=== PATIENT | female | born 1985 | race Caucasian/White ===

== ENCOUNTER 2017-05-24 11:29 | Inpatient (IN) | payer OTHER ==
[~2017-05-24] VITALS: Ht 157.5 cm; Wt 100.3 kg
--- NOTE | 2017-05-24 14:28 | RADRPT ---
PROCEDURE: OB ultrasound for biophysical profile CLINICAL INDICATION: Post dates. TECHNIQUE: Multiple sonographic images of the pelvis were obtained. Transabdominal view of the gr avid uterus are available for review. The images were reviewed on a PACS workstation. COMPARISON: None FINDINGS: breathing movement = 2/2 tone = 2/2 motion = 2/2 Quantitative amniotic fluid volume = 2/2 ELAINE = 11.4 cm Single live intrauterine with cardiac activity at 137 beats per minute. There is a posterior placenta without previa or abruption. IMPRESSION: 1. Single living intrauterine gestation in cephalic position. 2. Biophysical profile = 8. 3. ELAINE = 11.4 cm. RPTAT: [facility] Physician Leandro Date Time Electronically viewed and signed by Physician Leandro on 05/24/2017 14:27 /
[2017-05-24] MEDS ORDERED: MISOPROSTOL 200 MCG TAB PR PRN (15:00)
[2017-05-24] MEDS ORDERED: IBUPROFEN 600 MG TAB PO PRN (15:00)
[2017-05-24] MEDS ORDERED: METHYLERGONOVINE 0.2 MG INJ IM PRN (15:00)
[2017-05-24] MEDS ORDERED: OXYTOCIN 30 UNITS/LR 500 ML IV SCH ×3 (15:00)
[2017-05-24] MEDS ORDERED: LIDOCAINE 1% (MPF) 30 ML INJ INJ PRN (15:00)
[2017-05-24] MEDS ORDERED: OXYTOCIN 30 UNITS/LR 500 ML IV PRN (15:00)
[2017-05-24] MEDS ORDERED: AMPICILLIN 2 GM/NS (PMX) 100 ML IV ONE (15:00)
[2017-05-24] MEDS ORDERED: CARBOPROST 250 MCG INJ IM PRN (15:00)
[2017-05-24] MEDS ORDERED: BUTORPHANOL 2 MG INJ IV PRN (15:00)
[2017-05-24] MEDS: LACTATED RINGER'S 1,000 ML IV SCH (16:00)
[2017-05-24 16:22] LABS: BASOPHILS % 0.2 % (0.0-2.0); EOSINOPHILS % 0.3 % (0.0-7.0); HEMATOCRIT 33.7 % (37.0-47.0); HEMOGLOBIN 11.6 g/dl (12.0-16.0); LYMPHOCYTES # 2.4 10^3/ul (0.8-2.9); LYMPHOCYTES % 18.9 % (15.0-51.0); MEAN CORPUSCULAR HEMOGLOBIN 30.4 pg (29.0-33.0); MEAN CORPUSCULAR HGB CONC 34.4 g/dl (32.0-37.0); MEAN CORPUSCULAR VOLUME 88.2 fl (82.0-101.0); MEAN PLATELET VOLUME 10.1 fl (7.4-10.4); MONOCYTE # 0.6 10^3/ul (0.3-0.9); MONOCYTES % 4.9 % (0.0-11.0); NEUTROPHIL # 9.6 10^3/ul (1.6-7.5); NEUTROPHILS % 75.4 % (39.0-77.0); PLATELET COUNT 252 10^3/UL (140-415); RED BLOOD COUNT 3.82 10^6/ul (4.20-5.40); RED CELL DISTRIBUTION WIDTH 13.8 % (11.5-14.5); WHITE BLOOD COUNT 12.8 10^3/ul (4.8-10.8)
[2017-05-24 16:41] LABS: INR 0.93; PROTIME 12.6 Sec (11.9-14.9)
[2017-05-24 16:42] LABS: PARTIAL THROMBOPLASTIN TIME 27.4 Sec (25.0-35.0)
[2017-05-24 17:26] VITALS: Ht 157.5 cm; Wt 100.3 kg
[2017-05-24 17:27] VITALS: BP 115/67; PULSE 94; RESP 18
[2017-05-24] MEDS: CLINDAMYCIN 900 MG/D5W (PMX) 50 ML IVPB SCH ×2 (17:37→22:35)
[2017-05-24] MEDS ORDERED: PREN-93 PO (18:51)
[2017-05-24] MEDS ORDERED: ACYC400T2 PO (18:52)
[2017-05-24] MEDS ORDERED: FER325 PO (18:52)
[2017-05-24] MEDS ORDERED: AMPICILLIN 1 GM/NS (PMX) 50 ML IV SCH (19:00)
--- NOTE | 2017-05-24 19:37 | TRIAGE ---
OB Triage Datetime Report Generated by CPN: 05/24/2017 19:37 Datetime: 05/24/2017 18:58 Assessment Type: Ongoing Assessment Maternal Assessment Level of Consciousness: Fully Conscious DTR's/Clonus: DTRs 2+; No Clonus Headache: Denies Blurred Vision: No Respiratory Effort: Unlabored; Regular Rhythm; Equal Expansion Breath Sounds, Left: Clear and Equal Breath Sounds, Right: Clear and Equal Nausea/Vomiting: Denies RUQ Epigastric Pain: Denies Lower Extremities Edema: Bilateral Lower Extremities Degree: 1+ Upper Extremities Edema: None Degree: None Facial Edema: None Fall Risk Assessment History of Falling: (0) No Secondary Diagnosis: (0) No Ambulatory Aid: (0) Bedrest/Nurse Assist IV Therapy: (20) Yes Gait: (0) Normal/Bedrest/Immobile Mental Status: (0) Oriented to Own Ability Fall Score: 20 Fall Risk Score Definition: No Risk: No action required Datetime: 05/24/2017 18:55 Stage of : Labor Temperature Route: Oral Labor Evaluation Frequency: 4-6 Monitor Mode: External Duration (sec)2399: 30-60 Quality: Mild Pattern: Normal: <= 5 Contractions in 10 Minutes Resting Tone [place]: Relaxed Heart Rate FHR Baseline Rate: 140 Monitor Mode: External US Variability: Moderate 6-25 bpm Accelerations: 15X15 Decelerations: None Pain Assessment Pain Scale: 2 Pain Presence: Intermittent Pain Type: Cramping; Pressure Pain Location: Abdomen Pain Goal: 3 Pain Relief Measures: Comfort Measures Datetime: 05/24/2017 18:26 Stage of : Labor Labor Evaluation Frequency: 4-6 Monitor Mode: External Duration (sec)2399: 30-60 Quality: Mild Pattern: Normal: <= 5 Contractions in 10 Minutes Resting Tone [place]: Relaxed Heart Rate FHR Baseline Rate: 140 Monitor Mode: External US Variability: Moderate 6-25 bpm Accelerations: 15X15 Decelerations: None Pain Assessment Pain Scale: 2 Pain Presence: Intermittent Pain Type: Cramping; Pressure Pain Location: Abdomen Pain Goal: 3 Pain Relief Measures: Comfort Measures Vaginal Exam Membrane Status: Ruptured Membranes Ruptured Date/Time: 05/24/2017 09:00 Membranes Rupture Method: Spontaneous Datetime: 05/24/2017 17:55 Assessment Type: Admission Assessment Vaginal Bleeding: None Maternal Assessment Level of Consciousness: Fully Conscious DTR's/Clonus: DTRs 2+; No Clonus Headache: Denies Blurred Vision: No Respiratory Effort: Unlabored; Regular Rhythm; Equal Expansion Breath Sounds, Left: Clear and Equal Breath Sounds, Right: Clear and Equal Nausea/Vomiting: Denies RUQ Epigastric Pain: Denies Lower Extremities Edema: None Degree: None Upper Extremities Edema: None Degree: None Facial Edema: None Fall Risk Assessment History of Falling: (0) No Secondary Diagnosis: (0) No Ambulatory Aid: (0) Bedrest/Nurse Assist Gait: (0) Normal/Bedrest/Immobile Mental Status: (0) Oriented to Own Ability Labor Evaluation Frequency: 2-6 Monitor Mode: External Duration (sec)2399: 30-60 Quality: Mild Pattern: Normal: <= 5 Contractions in 10 Minutes Resting Tone [place]: Relaxed Heart Rate FHR Baseline Rate: 135 Monitor Mode: External US Variability: Moderate 6-25 bpm Accelerations: 15X15 Decelerations: None Pain Assessment Pain Scale: 2 Pain Presence: Intermittent Pain Type: Cramping; Pressure Pain Location: Abdomen Pain Goal: 3 Vaginal Exam Membrane Status: Bulging Membranes Ruptured Date/Time: 05/24/2017 09:00 Membranes Rupture Method: Spontaneous Amniotic Fluid Color: Clear Amniotic Fluid Amount: Small Amniotic Fluid Odor: None ROM Test Kit: Positive Datetime: 05/24/2017 17:00 Stage of : Labor Maternal Assessment Level of Consciousness: Fully Conscious Temperature Route: Oral Labor Evaluation Frequency: 3-5 Monitor Mode: External Duration (sec)2399: 30-60 Quality: Mild Pattern: Normal: <= 5 Contractions in 10 Minutes Resting Tone [place]: Relaxed Heart Rate FHR Baseline Rate: 135 Monitor Mode: External US Variability: Moderate 6-25 bpm Accelerations: 15X15 Decelerations: None Category: Category I Pain Assessment Pain Scale: 2 Pain Presence: Intermittent Pain Type: Cramping; Pressure Pain Location: Abdomen Pain Goal: 3 Pain Relief Measures: Comfort Measures Vaginal Exam Membrane Status: Ruptured (Annotations: ROM + POSITIVE IN TRIAGE) Membranes Ruptured Date/Time: 05/24/2017 09:00 Membranes Rupture Method: Spontaneous Amniotic Fluid Color: Clear Amniotic Fluid Amount: Small Amniotic Fluid Odor: None Vaginal Bleeding: None Datetime: 05/24/2017 12:00 Time of Arrival: 05/24/2017 11:19 EGA: 40.1 Arrived By: Ambulatory Arrived From: Home Chief Complaint: r/o srom small amt amn fluid about a tablespoon Movement: Present Contractions: Irregular Rupture of Membranes: Unsure Vaginal Bleeding: Normal Show Vaginal Discharge: Present Recent Sexual Intercouse: Yes Abdominal Trauma: Not Applicable Patient Complaints: Other Time Provider Notified: 05/24/2017 13:30 Provider Notified: Jin Initial Plan: EFM MONITOR UC'S AMNIOTIC FLUID NO LEAKAGE X 2 HRS
--- NOTE | 2017-05-24 19:44 | TRIAGE ---
OB Triage Datetime Report Generated by CPN: 05/24/2017 19:43 Datetime: 05/24/2017 19:28 Stage of : Labor Level of Consciousness: Fully Conscious DTR's/Clonus: DTRs 2+ Headache: Denies Blurred Vision: No Nausea/Vomiting: Denies RUQ Epigastric Pain: Denies Facial Edema: None Frequency: 3-4 Monitor Mode: External Duration (sec)2399: 40-60 Quality: Mild Pattern: Normal: <= 5 Contractions in 10 Minutes [address]ing Tone [place]: Relaxed FHR Baseline Rate: 135 Monitor Mode: External US FHR Baseline Changes: No Baseline Change Variability: Moderate 6-25 bpm Accelerations: 15X15 Decelerations: Early Category: Category I Comments: REACTIVE Pain Scale: 3 Pain Presence: Intermittent Pain Type: Dull; Ache Pain Location: Abdomen Pain Goal: 2 Pain Relief Measures: Comfort Measures Membrane Status: Ruptured Amniotic Fluid Color: Clear Amniotic Fluid Amount: Small Datetime: 05/24/2017 18:58 Fall Score: 20 Fall Risk Score Definition: No Risk: No action required Datetime: 05/24/2017 16:00 Frequency: 2-5 Monitor Mode: External Duration (sec)2399: 60 Quality: Mild Resting Tone [place]: Relaxed Monitor Mode: External US FHR Baseline Changes: No Baseline Change Variability: Moderate 6-25 bpm Accelerations: 15X15 Decelerations: None Category: Category I Pain Scale: 2 Datetime: 05/24/2017 14:30 Stage of : OB Triage Frequency: 2-6 Monitor Mode: External Duration (sec)2399: 60 Quality: Mild Resting Tone [place]: Relaxed FHR Baseline Rate: 135 Monitor Mode: External US FHR Baseline Changes: No Baseline Change Variability: Moderate 6-25 bpm Accelerations: 15X15 Decelerations: None Category: Category I Pain Scale: 2
[2017-05-24] MEDS: ACYCLOVIR 400 MG TAB PO SCH (20:54)
[2017-05-25] MEDS: LACTATED RINGER'S 1,000 ML IV SCH ×4 (00:37→21:07)
[2017-05-25] MEDS: CLINDAMYCIN 900 MG/D5W (PMX) 50 ML IVPB SCH ×3 (05:49→21:39)
[2017-05-25] MEDS: ACYCLOVIR 400 MG TAB PO SCH ×3 (08:59→21:04)
[2017-05-25] MEDS ORDERED: LACTATED RINGER'S 1,000 ML IV PRN (16:03)
[2017-05-25] MEDS ORDERED: FENTAnyl 2MCG/ML-ROPIV 0.2% 100 ML ONE (16:34)
[2017-05-25] MEDS ORDERED: ONDANSETRON 4 MG INJ IV PRN (19:30)
[2017-05-25] MEDS ORDERED: NALOXONE (0.4 MG/ML) INJ IV PRN (19:30)
[2017-05-25] MEDS ORDERED: DIPHENHYDRAMINE 50 MG INJ IV PRN (19:30)
[2017-05-25] MEDS ORDERED: OXYTOCIN 30 UNITS/LR 500 ML IV SCH (21:20)
[2017-05-26] MEDS: FENTAnyl 2MCG/ML-ROPIV 0.2% 100 ML BAG EPI SCH ×3 (01:05→07:27)
[2017-05-26] MEDS: LACTATED RINGER'S 1,000 ML IV SCH (04:31)
[2017-05-26] MEDS: CLINDAMYCIN 900 MG/D5W (PMX) 50 ML IVPB SCH (06:07)
[2017-05-26] MEDS ORDERED: OXYTOCIN 30 UNITS/LR 500 ML IV SCH (08:55)
[2017-05-26] MEDS ORDERED: LACTATED RINGER'S 1,000 ML IV* SCH (08:55)
[2017-05-26] MEDS ORDERED: METHYLERGONOVINE 0.2 MG INJ IM PRN (09:00)
[2017-05-26] MEDS ORDERED: HYDROCODONE/APAP (5/325) TAB PO PRN (09:00)
[2017-05-26] MEDS ORDERED: OXYTOCIN 30 UNITS/LR 500 ML IV PRN (09:00)
[2017-05-26] MEDS ORDERED: MISOPROSTOL 200 MCG TAB PR PRN (09:00)
[2017-05-26] MEDS ORDERED: LANOLIN 7 GM TUBE TOP PRN (09:00)
[2017-05-26] MEDS ORDERED: CARBOPROST 250 MCG INJ IM PRN (09:00)
--- NOTE | 2017-05-26 09:00 | LDN ---
Date/Time of Note Date/Time of Note DATE: 05/26/17 TIME: 08:57 Delivery Summary of a viable baby boyweighing 4125 grams or 93 @ oz, 21" long, and with Apgars of 9/9. Weeks of Gestation 40w 3d Placenta Delivered: Spontaneously Meconium: none Episiotomy: No Perineal laceration: 2 Laceration repair: Small second degree perineal laceration repaired with 2-0 chromic. Anesthesia type: Epidural Estimated blood loss: 250 Sponge & Needle done & correct: Yes All needle counts correct: Yes Any foreign bodies felt in the: No (vagina) Problems: Infant Delivery Information Sex Infant Sex: male Apgars 1 Minute: 9 5 Minute: 9 Suctioning Nose & mouth suctioned at radha: Yes Delee suction performed: No Umbilical Cord Umbilical cord with: 3 Vessels Cord presentations: nuchal cord Nuchal cord present X: 1 Cord Blood was obtained: Yes Mother & Baby Disposition Disposition Mom & Baby to Maternity; Good: Yes Baby to NICU: No JOSSELINE JOE MD May 26, 2017 09:00
--- NOTE | 2017-05-26 09:10 | HP ---
Date/Time of Note Date/Time of Note DATE: 05/26/17 TIME: 09:02 OB - History Hx of Present Free Text/Dictation 32 y.o. G1 with an IUP at 40w 3d came in on 05/24 with ruptured membranes and mild contractions. She has been on Pitocin since then. She has been on Cleocin the entire time for a positive group B strep status. Estimated Due Date: May 23, 2017 : 1 Para: 0 Care: Good Care Ultrasounds: Normal mid trimester US Obstetrical Complications: None Medical Complications: Other (H/o herpes- on prophylactic suppression.) Past Family/Social History * Past Medical, Surgical, Family and Obstetric Histories reviewed from chart. Blood Type: A+ Rubella: immune RPR/VDRL: Negative GBS Status: Positive HBsAG: Negative OB Admission Exam Vital Signs Vital Signs Vital Signs Date Time Temp Pulse Resp B/P Pulse Ox O2 Delivery O2 Flow Rate FiO2 05/24/17 17:27 98.8 94 18 115/67 Room Air Physical Exam HEENT: WNL Heart: Rhythm Normal Lungs: Clear Abdomen: WNL Extremities: Normal Reflexes: Normal Cervical Dilatation: 2cm Effacement: Other (60%) Station: -3 Membranes: Intact Amniotic Fluid: Clear Heart Rate: 140's Accelerations: Accelerations Present Decelerations: No Decelerations Varibility: Moderate Contractions on Admission: < 5 Minutes Apart Intensity: Mild Last 72 hours Lab Results CBC & BMP 05/24/17 16:00 OB Assessment/Plan Reason for admission: group B positive strep, rupture of membranes Plan: Other (Augmentation.) Other plan: Cleocin GBS prophylaxis. Acyclovir herpes prophylaxis. JOSSELINE JOE MD May 26, 2017 09:10
[2017-05-26] MEDS ORDERED: ERYTHROMYCIN 1 GM OPH OINT ONE (09:34)
[2017-05-26] MEDS ORDERED: PHYTONADIONE 1 MG/0.5 ML SYG ONE (09:34)
[2017-05-26 10:45] VITALS: BP 112/70; PULSE 107; RESP 18
[2017-05-26] MEDS: IBUPROFEN 600 MG TAB PO SCH ×2 (11:53→17:32)
[2017-05-26] MEDS: ACYCLOVIR 400 MG TAB PO SCH ×2 (14:31→20:43)
[2017-05-26 16:00] VITALS: BP 106/65; PULSE 101; RESP 16
[2017-05-26 20:30] VITALS: BP 90/62; PULSE 94; RESP 18
[2017-05-27 00:30] VITALS: BP 96/60; PULSE 90; RESP 18
[2017-05-27] MEDS: IBUPROFEN 600 MG TAB PO SCH ×4 (00:35→17:45)
[2017-05-27 03:45] VITALS: BP 148/42; PULSE 88; RESP 18
[2017-05-27 08:00] VITALS: BP 97/56; PULSE 85; RESP 18
[2017-05-27 08:43] LABS: BASOPHILS % 0.1 % (0.0-2.0); EOSINOPHILS # 0.1 10^3/ul (0.0-0.5); EOSINOPHILS % 0.6 % (0.0-7.0); HEMATOCRIT 28.4 % (37.0-47.0); HEMOGLOBIN 9.8 g/dl (12.0-16.0); LYMPHOCYTES # 3.4 10^3/ul (0.8-2.9); MEAN CORPUSCULAR HEMOGLOBIN 30.5 pg (29.0-33.0); MEAN CORPUSCULAR HGB CONC 34.5 g/dl (32.0-37.0); MEAN CORPUSCULAR VOLUME 88.5 fl (82.0-101.0); MEAN PLATELET VOLUME 9.8 fl (7.4-10.4); MONOCYTE # 0.7 10^3/ul (0.3-0.9); NEUTROPHIL # 9.3 10^3/ul (1.6-7.5); NEUTROPHILS % 68.8 % (39.0-77.0); PLATELET COUNT 223 10^3/UL (140-415); RED BLOOD COUNT 3.21 10^6/ul (4.20-5.40); RED CELL DISTRIBUTION WIDTH 14.2 % (11.5-14.5); WHITE BLOOD COUNT 13.5 10^3/ul (4.8-10.8)
[2017-05-27] MEDS: ACYCLOVIR 400 MG TAB PO SCH ×3 (08:57→21:22)
[2017-05-27 16:00] VITALS: BP 102/59; PULSE 91; RESP 18
--- NOTE | 2017-05-27 19:29 | PD.PPDC ---
[employer] Discharge Instruction Condition Patient Condition: Good Diet Diet: Resume Regular Diet Activity/Restrictions Activity: Normal Activity May Shower Restrictions: No Sexual Activity Nothing in the Vagina No [place] No Tampons, douche Follow-up Follow-up with Physician: 6, Week/Weeks Return to clinic for TELEPHONE [employer] Instructions: Fever greater than 101 Chills Worsening abdominal pain Excessive Vaginal Bleeding OB Instructions: Breast Tenderness Depression JOSSELINE JOE MD May 27, 2017 19:29
--- NOTE | 2017-05-27 19:31 | DS ---
Date/Time of Note Date/Time of Note DATE: 05/27/17 TIME: 19:30 Obstetrical Discharge Record Final Diagnosis Final Diagnosis: Term delivered Vaginal Delivery Obstetrical Delivery: Spontaneous, Laceration, Repaired Complications Augmentation: Yes Condition on Discharge Physical Assessment Last Vitals: 98.4 BP 102/59 Voiding: Yes Bowel Movement: No Breast: Soft, non-tender Fundus: Firm Calf Tenderness: No Patient Condition: Good JOSSELINE JOE MD May 27, 2017 19:31
[2017-05-27 20:15] VITALS: BP 107/66; PULSE 101; RESP 18
[2017-05-28] MEDS: IBUPROFEN 600 MG TAB PO SCH ×3 (00:31→11:34)
[2017-05-28 04:15] VITALS: BP 114/66; PULSE 83; RESP 18
[2017-05-28 08:00] VITALS: BP 106/61; PULSE 88; RESP 18
[2017-05-28] MEDS ORDERED: DIPHTH/TET/ACEL PERTUSS (ADULT) 0.5 ML VIAL IM* ONE (09:00)
[2017-05-28] MEDS: ACYCLOVIR 400 MG TAB PO SCH (09:16)
== END 2017-05-28 14:00 | disposition home or self-care (01) | DRG 775 ==
LOC: L-D 11:29 → OBT 11:29 → L-D 14:45 → OBT 14:59 → L-D 15:38 → PP1 05-26 10:37
PROVIDERS: ADMIT Obstetrics & Gynecology; ATTEND Obstetrics & Gynecology
PROC: 10E0XZZ Delivery of Products of Conception, External Approach (ICD-10-PCS; principal; 2017-05-26)
PROC: 0KQM0ZZ Repair Perineum Muscle, Open Approach (ICD-10-PCS; 2017-05-26)
PROC: 3E033VJ Introduction of Other Hormone into Peripheral Vein, Percutaneous Approach (ICD-10-PCS; 2017-05-26)
DX: O48.0 Post-term pregnancy (principal); O69.81X0 Labor and delivery complicated by cord around neck, without compression, not applicable or unspecified; Z3A.40 40 weeks gestation of pregnancy; O70.1 Second degree perineal laceration during delivery; Z37.0 Single live birth
CPT/HCPCS: 62319; 76818; 84112; 85025; 85610; 85730; 86592; 86850; 86900; 86901; 87340; 90715; 99464; J3430; G0463; J0595; J2590; J3010; J7120